=== PATIENT | male | born 1945 | race Caucasian/White ===

== ENCOUNTER 2020-08-05 05:30 | Day surgery (SDC) | payer MEDICARE ==
[2020-07-31 07:47] LABS: ANION GAP 9 (8-16); BASOPHILS % (AUTO) 0.8 % (0-1); BLOOD UREA NITROGEN 17 MG/DL (7-18); BUN/CREATININE RATIO 18.1 (5.4-32.0); CALCIUM 9.2 MG/DL (8.5-10.1); CHLORIDE 107 MMOL/L (99-107); CREATININE 0.94 MG/DL (0.60-1.10); EOSINOPHILS # (AUTO) 0.1 X10'3 (0-0.9); EOSINOPHILS % (AUTO) 1.6 % (0-6); GLUCOSE 113 MG/DL (70-104); HEMATOCRIT 45.9 % (42.0-52.0); HEMOGLOBIN 15.4 g/dl (14.0-17.9); LYMPHOCYTES # (AUTO) 1.8 X10'3 (1.1-4.8); LYMPHOCYTES % (AUTO) 30.2 % (21-51); MEAN CORPUSCULAR HEMOGLOBIN 31.3 PG (27.0-31.0); MEAN CORPUSCULAR HGB CONC 33.5 g/dL (33.0-36.5); MEAN CORPUSCULAR VOLUME 93.3 FL (78-98); MEAN PLATELET VOLUME 9.8 FL (7.4-10.4); MONOCYTES # (AUTO) 0.6 X10'3 (0-0.9); MONOCYTES % (AUTO) 10.1 % (2-12); NEUTROPHILS # (AUTO) 3.5 X10'3 (1.8-7.7); NEUTROPHILS % (AUTO) 57.3 % (42-75); PLATELET COUNT 211 X10'3 (140-440); RED BLOOD COUNT 4.93 X10'6 (4.70-6.10); RED CELL DISTRIBUTION WIDTH 12.9 % (11.5-14.5); SODIUM 140 MMOL/L (135-145); TOTAL CARBON DIOXIDE 24.2 MMOL/L (24-32); WHITE BLOOD COUNT 6.1 X10'3 (4.5-11.0); eGFR 79 ML/MIN
[2020-07-31 07:51] LABS: PARTIAL THROMBOPLASTIN TIME 29 SECONDS (22-32)
[2020-08-05] VITALS (9 sets, daily range): BP systolic 123–149; BP diastolic 74–94
[~2020-08-05] VITALS: Ht 167.6 cm; Wt 85.5 kg
[2020-08-05] MEDS ORDERED: LORazepam 0.5 MG tablet PO PRN (06:15)
[2020-08-05] MEDS ORDERED: diphenhydrAMINE 25mg capsule PO PRN (06:15)
[2020-08-05] MEDS ORDERED: normal saline 1,000 ML IV SCH (06:15)
[2020-08-05] MEDS ORDERED: LIDOcaine/PRILOcaine 5gm cream TP ONE (06:20)
[2020-08-05] MEDS ORDERED: FINA5TAB11 PO (06:21)
[2020-08-05] MEDS ORDERED: ATOR40TA71 PO (06:21)
[2020-08-05] MEDS ORDERED: ADV50250 IH (06:21)
[2020-08-05] MEDS ORDERED: FLO0.4C PO (06:21)
[2020-08-05] MEDS ORDERED: ASPI-1265 PO (06:21)
[2020-08-05] MEDS ORDERED: nitroGLYCERIN-Tridil 50MG/D5W 250 ML IV ONE (07:27)
[2020-08-05] MEDS ORDERED: heparin 1,000unit/ml 10ml vial 10 ML ONE (07:28)
[2020-08-05] MEDS ORDERED: verapamil 2.5 mg/ml inj IV ONE (07:28)
[2020-08-05] MEDS ORDERED: midazolam 2 mg/2 ml injection ONE (07:28)
[2020-08-05] MEDS ORDERED: fentaNYL/PF 50MCG/1 ML 2ML syringe ONE (07:28)
[2020-08-05] MEDS ORDERED: LIDOcaine 1% (10mg/ml)w/preservative injection 20ml MDV ONE (07:28)
[2020-08-05] MEDS ORDERED: iohexol 350MG/ML 100ml bottle IV ONE ×2 (07:28→07:50)
[2020-08-05] MEDS ORDERED: iohexol 350 MG/ML 50ML vial IV ONE ×2 (07:50→07:56)
[2020-08-05] MEDS ORDERED: pneumococcal 23-VAL P-sac vacc 25 mcg/0.5ml vial IMVAC ONE (13:20)
== END 2020-08-05 11:30 | disposition home or self-care (01) ==
LOC: SSTAY O 05:30
PROVIDERS: ATTEND Student in an Organized Health Care Education/Training Program
DX: R94.39 Abnormal result of other cardiovascular function study (principal); R07.89 Other chest pain; E78.5 Hyperlipidemia, unspecified; J44.9 Chronic obstructive pulmonary disease, unspecified; Z88.8 Allergy status to other drugs, medicaments and biological substances; Z88.2 Allergy status to sulfonamides; Z79.899 Other long term (current) drug therapy; Z79.82 Long term (current) use of aspirin; Z87.891 Personal history of nicotine dependence
CPT/HCPCS: 36415; 80048; 85025; 85610; 85730; 93458; 93567; 99152; 99153; C1769; C1894; J1644; J2001; J2250; J3010; J7030; Q0163; Q9967; A4620; A5120; J3490